=== PATIENT | female | born 1965 | race Hispanic/Latino ===

== ENCOUNTER 2017-05-29 08:00 | Outpatient (CLI) | payer OTHER ==
--- NOTE | 2017-05-29 09:42 | MRI ---
MRI LUMBAR SPINE WITHOUT CONTRAST: HISTORY: Low back pain. COMPARISON: None. FINDINGS: The visualized portion of the kidneys is unremarkable. No retroperitoneal adenopathy. The paraspinal musculature is normal. Background marrow signal is normal. The conus medullaris terminates at the superior endplate of L1. Levels are as follow: T12-L1: Normal disk space. No neural foramina or spinal canal narrowing. L1-L2: Normal disk space. No neural foramina or spinal canal narrowing. L2-L3: Mild facet arthrosis. There is a low grade circumferential disk bulge. Mild effacement of t he ventral CSF space. The spinal canal measures 1 cm in size. No significant neural foraminal narro wing. L3-L4: Moderate disk desiccation and circumferential disk bulge. Mild facet arthrosis. There is mi ld bilateral neural foraminal narrowing. The spinal canal measures approximately 1 cm. L4-L5: Moderate circumferential disk bulge and disc space height loss. There is mild facet arthropa thy. The combination of these factors causes moderate bilateral neural foraminal narrowing. The spi nal canal measures approximately 6 mm. L5-S1: Moderate circumferential disc space height loss with circumferential disk bulge. The spinal canal measures approximately 8 mm. There is moderate bilateral neural foraminal narrowing and mild f acet arthropathy. IMPRESSION: Mild to moderate degenerative changes, as described above, worse at L4-L5 and at L5-S1. POS: [facility]
== END 2017-05-29 08:01 | disposition home or self-care (01) ==
LOC: MRI 08:00
PROVIDERS: ATTEND Family Medicine
DX: M54.5 Low back pain (principal); M47.897 Other spondylosis, lumbosacral region
CPT/HCPCS: 72148

== ENCOUNTER 2017-07-19 20:11 | Emergency (ER) | payer OTHER ==
[~2017-07-19 20:11] MED LIST: ISOVUE-370 76%-LOCM 1 ML ONE
[2017-07-19 22:04] LABS: Bilirubin Negative (Negative); Blood, Urine Moderate (Negative); Clarity CLEAR (Clear); Glucose, Urine (Dipstick) Negative (Negative); Leukocyte Moderate (Negative); Nitrite Negative (Negative); Protein, Urine (Dipstick) Negative (Neg-Trace); Specific Gravity, Urine 1.019 (1.002-1.036); pH, Urine 6.5 (5.0-9.0)
[2017-07-19 22:06] LABS: Bacteria/HPF None Seen HPF (None Seen); Hyaline Casts/LPF 0-3 HYALINE CAST LPF (0-3 Hyaline); Pathc Cast-AUWi Flag 0.13 (0-2.49); RBC/HPF 21-50 HPF (0-3)
[2017-07-19 22:18] LABS: #Basophils 0.1 thou/uL (0.0-0.2); #Lymphocytes 1.9 thou/uL (1.20-3.40); #Monocytes 0.8 thou/uL (0.11-0.59); #Neutrophils 6.3 thou/uL (1.40-6.50); %Basophils 0.7 % (0.0-1.0); %Eosinophils 0.2 % (0.0-10.0); %Monocytes 8.9 % (0.0-10.0); %Neutrophils 69.3 % (42.0-75.0); Hemoglobin 13.2 g/dL (12.0-16.0); Mean Corpuscular HGB CONC 34.1 g/dL (32.0-36.0); Mean Corpuscular Hemoglobin 32.7 pg (27.0-31.0); Mean Platelet Volume 7.6 fL (7.4-10.4); Platelet Count 224 thou/uL (130-400); RBC Distribution Width 11.8 % (11.5-14.5); Red Blood Cell (RBC) Count 4.03 mill/uL (4.20-5.40); White Blood Cell (WBC) Count 9.1 thou/uL (4.8-10.8)
[2017-07-19] MEDS ORDERED: Ketorolac Tromethamine 30 MG/ML VIAL ONE (22:32)
[2017-07-19 22:42] LABS: ALT (SGPT) 15 U/L (8-55); AST (SGOT) 21 U/L (5-34); Albumin 4.1 g/dL (3.5-5.0); Alkaline Phosphatase 75 U/L (40-150); Anion Gap 12 mmol/L (10-20); BUN (Urea Nitrogen) 16 mg/dL (9.8-20.1); Bilirubin, Total 0.4 mg/dL (0.2-1.2); Calc. Creatinine Clearance 0 mL/min (70-130); Calcium 9.4 mg/dL (7.8-10.44); Carbon Dioxide 26 mmol/L (22-29); Chloride 102 mmol/L (98-107); Estimated GFR-MDRD 72; Globulin 3.1 g/dL (2.4-3.5); Glucose 123 mg/dL (70-105); Lipase 9 U/L (8-78); Potassium 3.7 mmol/L (3.5-5.1); Protein, Total 7.2 g/dL (6.0-8.3); Sodium 136 mmol/L (136-145)
--- NOTE | 2017-07-19 23:23 | CT ---
CT ABDOMEN AND PELVIS WITH CONTRAST: 07/19/17 Multiple axial tomograms obtained through the abdomen and pelvis with IV enhancement. HISTORY: Abdominal pain. Right abdominal pain. FINDINGS: The lung bases are clear. Liver, spleen and pancreas are unremarkable. Stomach and duodenum unremarkable. Adrenal glands and ki dneys unremarkable. No hydronephrosis or urinary calculus identified. Small bowel loops appear normal. Appendix appears normal. Stool throughout the colon. No evidence of diverticulitis, although there is diverticulosis of the sigmoid. Uterus and adnexa appear unremarkable. Aorta is normal caliber. No adenopathy. IMPRESSION: No evidence of acute process. POS: [facility]
[2017-07-20] MEDS ORDERED: Fentanyl 100 MCG/2 ML VIAL ONE (01:03)
[2017-07-20] MEDS ORDERED: Dexamethasone 10 MG/ML VIAL ONE (01:04)
[2017-07-20] MEDS ORDERED: cefTRIAXone\\ROCEPHIN 2 GM in Sodium Chloride 0.9% 100 ML IVPB SCH (01:15)
== END 2017-07-20 02:44 | disposition home or self-care (01) ==
LOC: ERS 20:11
DX: N39.0 Urinary tract infection, site not specified (principal); M54.31 Sciatica, right side
CPT/HCPCS: 36415; 74177; 80053; 81003; 81015; 83690; 85025; 96361; 96365; 96375; J0696; J1100; J1885; J3010; J7050

== ENCOUNTER 2018-07-09 09:31 | Outpatient (CLI) | payer OTHER ==
--- NOTE | 2018-07-09 10:32 | MMO ---
BILATERAL SCREENING MAMMOGRAM: HISTORY: A 52-year-old female. Routine screening mammography. COMPARISON: 12/14/2014 and 06/22/2016 TECHNIQUE: CC and MLO views of both breasts are submitted for interpretation. This patient's mammogram is revie wed with the assistance of computer aided detection. FINDINGS: The breasts are composed of scattered fibroglandular tissue. Bilaterally, no suspicious dominant mas s, architectural distortion, or suspicious calcification. There are bilateral benign appearing calci fications. Stable asymmetry in the lower inner left breasts. IMPRESSION: BI-RADS Category 2-Benign findings. RECOMMENDATIONS: Annual mammogram. POS: [facility]
== END 2018-07-09 09:32 | disposition home or self-care (01) ==
LOC: SCSMAMMO 09:31
PROVIDERS: ATTEND Family Medicine
DX: Z12.31 Encounter for screening mammogram for malignant neoplasm of breast (principal)
CPT/HCPCS: 77067